=== PATIENT | female | born 1950 | race Two or more races ===

== ENCOUNTER 2022-09-17 06:34 | Day surgery (SDC) | payer OTHER | END 2022-09-17 11:40 | disposition home or self-care (01) | LOC: AMB-ENDOS 06:34 | PROVIDERS: ATTEND Colon & Rectal Surgery | DX: K57.30 Diverticulosis of large intestine without perforation or abscess without bleeding (principal); K63.5 Polyp of colon; I10 Essential (primary) hypertension; Z20.822 Contact with and (suspected) exposure to COVID-19 ==